=== PATIENT | male | born 1990 | race Caucasian/White ===

== ENCOUNTER 2023-01-03 19:12 | Emergency (ER) | payer OTHER ==
[2023-01-03 19:36] VITALS: BP 112/62; PULSE 92; RESP 24; TEMP 99.7; BMI 23.7
[2023-01-03] MEDS ORDERED: KETOROLAC TROMETHAMINE 60 MG/2 ML VIAL IM ONE (20:45)
[2023-01-03] MEDS ORDERED: KETOROLAC TROMETHAMINE 60 MG/2 ML VIAL ONE (20:47)
== END 2023-01-03 20:59 | disposition home or self-care (01) ==
LOC: FER 19:12
PROC: 3E0233Z Introduction of Anti-inflammatory into Muscle, Percutaneous Approach (ICD-10-PCS; principal; 2023-01-03)
DX: S22.32XA Fracture of one rib, left side, initial encounter for closed fracture (principal); W01.0XXA Fall on same level from slipping, tripping and stumbling without subsequent striking against object, initial encounter; Y99.0 Civilian activity done for income or pay
CPT/HCPCS: 71046-TC-FY; 71101-TC-LT-FY; 99284-25